=== PATIENT | male | born 1995 | race Two or more races ===

== ENCOUNTER 2017-05-10 21:57 | Emergency (ER) | payer OTHER ==
[~2017-05-10] VITALS: Ht 165.1 cm; Wt 52.6 kg
[2017-05-10 22:00] VITALS: BP 124/76
[2017-05-10] MEDS ORDERED: BACITRACIN TOP OINT 1 UD PKG TOP ONE (23:30)
[2017-05-10] MEDS ORDERED: LIDOCAINE 1% HCL (LOCAL ANESTH.) INJ 20ML MDV IJ ONE (23:30)
== END 2017-05-10 23:50 | disposition home or self-care (01) ==
LOC: ER 21:57
DX: S61.411A Laceration without foreign body of right hand, initial encounter (principal); W25.XXXA Contact with sharp glass, initial encounter; Y93.89 Activity, other specified; Y92.89 Other specified places as the place of occurrence of the external cause; Y99.8 Other external cause status
CPT/HCPCS: 12002; 99283; J2001

== ENCOUNTER 2017-05-13 15:16 | Emergency (ER) | payer OTHER ==
[~2017-05-13] VITALS: Ht 165.1 cm; Wt 52.6 kg
[2017-05-13 15:38] VITALS: BP 124/80
== END 2017-05-13 17:12 | disposition home or self-care (01) ==
LOC: ER 15:24
DX: S61.411D Laceration without foreign body of right hand, subsequent encounter (principal); X58.XXXD Exposure to other specified factors, subsequent encounter; Y93.89 Activity, other specified; Y99.8 Other external cause status; Y92.89 Other specified places as the place of occurrence of the external cause

== ENCOUNTER 2017-05-17 17:50 | Emergency (ER) | payer OTHER ==
[~2017-05-17] VITALS: Ht 167.6 cm; Wt 52.6 kg
[2017-05-17 18:04] VITALS: BP 97/76
== END 2017-05-17 21:05 | disposition home or self-care (01) ==
LOC: ER 17:50
DX: S61.411D Laceration without foreign body of right hand, subsequent encounter (principal); X58.XXXD Exposure to other specified factors, subsequent encounter